=== PATIENT | male | born 1995 | race Two or more races ===

== ENCOUNTER → 2020-05-25 | Emergency (ER) | payer OTHER ==
[~2020-05-25] VITALS: Ht 188 cm; Wt 68.0 kg
== END | disposition home or self-care (01) ==
LOC: ER 12:23
DX: R00.2 Palpitations (principal); F06.4 Anxiety disorder due to known physiological condition; E86.0 Dehydration; Z03.818 Encounter for observation for suspected exposure to other biological agents ruled out